=== PATIENT | female | born 1990 | race Two or more races ===

== ENCOUNTER 2021-12-04 07:24 | Emergency (ER) | payer OTHER ==
[~2021-12-04] VITALS: Ht 134.6 cm; Wt 42.0 kg
[2021-12-04 07:57] LABS: COVID AG,FIA SOURCE NASOPHARYNGEAL
[2021-12-04 08:59] VITALS: BP 106/73
== END 2021-12-04 09:07 | disposition home or self-care (01) ==
LOC: EMS 07:34
DX: U07.1 COVID-19 (principal); Z11.1 Encounter for screening for respiratory tuberculosis
CPT/HCPCS: 71045; 99284